=== PATIENT | female | born 1965 | race Hispanic/Latino ===

== ENCOUNTER 2021-08-10 16:30 | Inpatient (IN) | payer MEDICAID ==
[2021-08-11] MEDS ORDERED: traMADol 50 MG TAB PO PRN (09:00)
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
[2021-08-11] MEDS ORDERED: BUPRENORPHINE 2 MG/NALOXONE 0.5 MG FILM SL SCH (10:00)
[2021-08-11] MEDS ORDERED: NON-FORMULARY EACH (Metformin Hcl [Metformin] 1,000 MG Tablet) PO SCH (10:00)
[2021-08-11] MEDS: CLARITHROMYCIN 500 MG TAB PO SCH ×2 (10:16→22:03)
[2021-08-11] MEDS: DULoxetine 30 MG CAP PO SCH (11:10)
[2021-08-11] MEDS: PANTOPRAZOLE 20 MG TAB PO SCH (11:10)
[2021-08-11] MEDS: busPIRone 10 MG TAB PO SCH ×2 (11:10→22:03)
[2021-08-11] MEDS: LISINOPRIL 40 MG TAB PO SCH (11:11)
[2021-08-11] MEDS: AMOXICILLIN 500 MG CAP PO SCH ×2 (11:11→22:04)
[2021-08-11] MEDS: BUPRENORPHINE 2 MG/NALOXONE 0.5 MG FILM SL SCH ×2 (11:12→22:03)
[2021-08-11] MEDS: metFORMIN 500 MG TAB PO SCH ×2 (11:17→18:24)
[2021-08-11] MEDS: PROPRANOLOL 10 MG TAB PO SCH ×2 (15:27→20:29)
[2021-08-11 16:12] LABS: Basophils # (Auto) 0.1 K/mm3 (0.0-0.1); Basophils % (Auto) 0.8 % (0.0-1.8); Eosinophils % (Auto) 0.5 % (0.0-4.3); Hematocrit 48.5 % (30.3-42.9); Hemoglobin 15.9 gm/dl (10.1-14.3); Lymphocytes # (Auto) 2.6 K/mm3 (1.2-5.4); Lymphocytes % (Auto) 32.2 % (13.4-35.0); Mean Corpuscular HGB Conc 33 % (30-34); Mean Corpuscular Volume 90 fl (79-97); Monocytes # (Auto) 0.6 K/mm3 (0.0-0.8); Monocytes % (Auto) 7.1 % (0.0-7.3); Platelet Count 257 K/mm3 (140-440); Red Blood Count 5.38 M/mm3 (3.65-5.03); Red Cell Distribution Width 13.8 % (13.2-15.2)
[2021-08-11 16:28] LABS: Alanine Aminotransferase 8 units/L (7-56); Albumin 3.8 g/dL (3.9-5); BUN/Creatinine Ratio 11; Blood Urea Nitrogen 9 mg/dL (7-17); Calcium 9.8 mg/dL (8.4-10.2); Chol/HDL Ratio 4.55 %; HDL Cholesterol 43 mg/dL (40-59); Hemolysis Index 3; LDL Cholesterol,Direct 131 mg/dL (50-130)
[2021-08-11 17:09] LABS: Hepatitis B Surface Antigen Non-Reactive (Negative); Hepatitis C Virus Antibody Non-Reactive (NonReactive)
[2021-08-12] MEDS: metFORMIN 500 MG TAB PO SCH ×2 (08:33→17:05)
--- NOTE | 2021-08-12 09:02 | Progress Note ---
Subjective Date of service: 08/12/21 Subjective Comment: 08/12/21: The patient was seen at breakfast. She reports doing well. The patient is paranoid stating "people are out to get me and my family." She denies any current suicidal ideation but continues to endorse auditory hallucinations. REVIEW OF SYSTEMS Constitutional: Negative for weight loss ENT: Negative for stridor Respiratory: Negative for cough or hemoptysis All other systems reviewed and are negative MENTAL STATUS EXAMINATION General Appearance and Behavior: Age appropriate, good hygiene, wearing appropriate clothes, calm and cooperative polite with questioning. Cooperation: engaged Psychomotor Behavior: Psychomotor normal Mood:depressed Affect and affective range: congruent with stated mood Thought Process: Goal directed Thought Content: Reality oriented Speech: Normal Suicidal Ideation: Denies Homicidal Ideation: Denies Hallucinations: Auditory Delusions: None elicited Impulse Control: Normal Insight and Judgment: Limited Memory: Normal Attention: attentive Orientation: a/o x3 Diagnoses: Schizoaffective Treatment Plan Patient admitted for inpatient psychiatric evaluation, medication adjustment and close monitoring The patient's behavior, mood, sleep and appetite will be closely monitored. Patient enrolled in individual and group therapeutic sessions and encouraged to attend. Patient provided with a safe and structured environment. Patient's physical health needs will be addressed by the Hospitalist. Hospitalist Consulted Labs including CBC, CMP, Lipid profile and Hemoglobin A1C levels ordered for baseline reference Social Assessment will be completed and the Round [employer]er will work with patient and family to ensure a suitable and safe disposition Medication adjustment will be made as clinically indicated Start Home Meds Usual Wellness Mandaen/Preservation: - Start Trazodone 50 mg po QHS & 50 mg po QHS PRN between 10 PM & 2 AM for insomnia - Start Melatonin 5 mg po QHS to promote circadian rhythm The patient agreed on the treatment plan, understood the risk, benefit, alternative treatment, potential consequence of no treatment, and gave informed consent. Initial Certification I certify that the inpatient psychiatric services are required for treatment that could reasonably be expected to improve the patient's condition. Estimated days: 7 Post hospital care: primary care provider, psychiatric provider Case staffed with Dr. Savage Legal Status: Voluntary Reaction to Hospitalization: Accepting Medications and Allergies Medications and Allergies Allergies Allergy/AdvReac Type Severity Reaction Status Date / Time No Known Allergies Allergy Verified 08/11/21 03:31 Home Medications Medication Instructions Recorded Confirmed Last Taken Type Amoxicillin [Trimox CAP] 1,000 mg PO BID 08/10/21 08/10/21 Unknown History Clarithromycin 500 mg PO Q12HR 08/10/21 08/10/21 Unknown History DULoxetine [Cymbalta] 30 mg PO DAILY 08/10/21 08/10/21 Unknown History Metformin HCl [metFORMIN] 1,000 mg PO BID 08/10/21 08/10/21 Unknown History Paliperidone Palmitate [Invega 234 mg IM QMONTH 08/10/21 08/10/21 Unknown History Sustenna] Pantoprazole [Protonix TAB] 20 mg QDAY 08/10/21 08/10/21 Unknown History busPIRone [Buspar] 10 mg PO BID 08/10/21 08/10/21 Unknown History lisinopriL [Zestril TAB] 40 mg PO QDAY 08/10/21 08/10/21 Unknown History propranoloL [Inderal] 10 mg PO TID 08/10/21 08/10/21 Unknown History traMADoL [Ultram] 50 mg PO Q12HR PRN 08/10/21 08/10/21 Unknown History Active Meds: Active Medications Amoxicillin (Amoxicillin 500 Mg Cap) 1,000 mg PO BID [facility]; Protocol Stop: 08/24/21 22:01 Last Admin: 08/11/21 22:04 Dose: 1,000 mg Buprenorphine HCl (Buprenorphine 2 Mg/Naloxone 0.5 Mg Film) 2 each SL BID [facility] Last Admin: 08/11/21 22:03 Dose: 2 each Buspirone HCl (Buspirone 10 Mg Tab) 10 mg PO BID [facility] Last Admin: 08/11/21 22:03 Dose: 10 mg Clarithromycin (Clarithromycin 500 Mg Tab) 500 mg PO Q12HR [facility] Stop: 08/24/21 22:01 Last Admin: 08/11/21 22:03 Dose: 500 mg Duloxetine HCl (Duloxetine 30 Mg Cap) 30 mg PO DAILY [facility] Last Admin: 08/11/21 11:10 Dose: 30 mg Lisinopril (Lisinopril 40 Mg Tab) 40 mg PO QDAY [facility] Last Admin: 08/11/21 11:11 Dose: 40 mg Metformin HCl (Metformin 500 Mg Tab) 1,000 mg PO BIDDIAB [facility] Last Admin: 08/12/21 08:33 Dose: 1,000 mg Pantoprazole Sodium (Pantoprazole 20 Mg Tab) 20 mg PO QDAY [facility] Last Admin: 08/11/21 11:10 Dose: 20 mg Propranolol HCl (Propranolol 10 Mg Tab) 10 mg PO TID [facility] Last Admin: 08/11/21 20:29 Dose: 10 mg Tramadol HCl (Tramadol 50 Mg Tab) 50 mg PO Q12HR PRN PRN Reason: Pain , Severe (7-10) Results - Results Labs/Vitals: Laboratory Last Values WBC 8.2 K/mm3 (4.5-11.0) 08/11/21 15: RBC 5.38 M/mm3 (3.65-5.03) H 08/11/21 15:21 Hgb 15.9 gm/dl (10.1-14.3) H 08/11/21 15: Hct 48.5 % (30.3-42.9) H 08/11/21 15:21 MCV 90 fl (79-97) 08/11/21 15: MCH 30 pg (28-32) 08/11/21 15: MCHC 33 % (30-34) 08/11/21 15:21 RDW 13.8 % (13.2-15.2) 08/11/21 15:21 Plt Count 257 K/mm3 (140-440) 08/11/21 15:21 Lymph % (Auto) 32.2 % (13.4-35.0) 08/11/21 15:21 Crosby % (Auto) 7.1 % (0.0-7.3) 08/11/21 15: Eos % (Auto) 0.5 % (0.0-4.3) 08/11/21 15: Baso % (Auto) 0.8 % (0.0-1.8) 08/11/21 15: Lymph # (Auto) 2.6 K/mm3 (1.2-5.4) 08/11/21 15:21 Crosby # (Auto) 0.6 K/mm3 (0.0-0.8) 08/11/21 15:21 Eos # (Auto) 0.0 K/mm3 (0.0-0.4) 08/11/21 15:21 Baso # (Auto) 0.1 K/mm3 (0.0-0.1) 08/11/21 15:21 Seg Neutrophils % 59.4 % (40.0-70.0) 08/11/21 15:21 Seg Neutrophils # 4.9 K/mm3 (1.8-7.7) 08/11/21 15:21 Sodium 140 mmol/L (137-145) 08/11/21 15:21 Potassium 4.7 mmol/L (3.6-5.0) 08/11/21 15:21 Chloride 104.9 mmol/L (98-107) 08/11/21 15:21 Carbon Dioxide 23 mmol/L (22-30) 08/11/21 15:21 Anion Gap 17 mmol/L 08/11/21 15:21 BUN 9 mg/dL (7-17) 08/11/21 15:21 Creatinine 0.8 mg/dL (0.6-1.2) 08/11/21 15:21 Estimated GFR > 60 ml/min 08/11/21 15:21 BUN/Creatinine Ratio 11 % 08/11/21 15:21 Glucose 86 mg/dL (65-100) 08/11/21 15:21 POC Glucose 85 mg/dL (70-105) 08/12/21 06:33 Hemoglobin A1c 5.8 % (4-6) 08/11/21 15:21 Calcium 9.8 mg/dL (8.4-10.2) 08/11/21 15:21 Total Bilirubin 0.40 mg/dL (0.1-1.2) 08/11/21 15:21 AST 12 units/L (5-40) 08/11/21 15:21 ALT 8 units/L (7-56) 08/11/21 15:21 Alkaline Phosphatase 77 units/L (35-129) 08/11/21 15:21 Total Protein 6.4 g/dL (6.3-8.2) 08/11/21 15:21 Albumin 3.8 g/dL (3.9-5) L 08/11/21 15:21 Albumin/Globulin Ratio 1.5 % 08/11/21 15:21 Triglycerides 98 mg/dL (2-149) 08/11/21 15:21 Cholesterol 196 mg/dL (50-199) 08/11/21 15:21 LDL Cholesterol Direct 131 mg/dL (50-130) H 08/11/21 15:21 HDL Cholesterol 43 mg/dL (40-59) 08/11/21 15:21 Cholesterol/HDL Ratio 4.55 % 08/11/21 15:21 TSH 0.976 mlU/mL (0.270-4.200) 08/11/21 15:21 Hepatitis A IgM Ab Non-reactive (NonReactive) 08/11/21 15:21 Hep Bs Antigen Non-reactive (Negative) 08/11/21 15:21 Hep B Core IgM Ab Non-reactive (NonReactive) 08/11/21 15:21 Hepatitis C Antibody Non-reactive (NonReactive) 08/11/21 15:21 Last Vital Signs Temp 97.4 F L 08/11/21 19:26 Pulse 90 08/11/21 20:29 Resp 18 08/11/21 19:26 BP 123/92 08/11/21 20:29 Pulse Ox 95 08/11/21 19:26
[2021-08-12] MEDS: AMOXICILLIN 500 MG CAP PO SCH ×2 (09:35→21:03)
[2021-08-12] MEDS: PANTOPRAZOLE 20 MG TAB PO SCH (09:35)
[2021-08-12] MEDS: LISINOPRIL 40 MG TAB PO SCH (09:36)
[2021-08-12] MEDS: busPIRone 10 MG TAB PO SCH ×2 (09:36→21:03)
[2021-08-12] MEDS: DULoxetine 30 MG CAP PO SCH (09:36)
[2021-08-12] MEDS: PROPRANOLOL 10 MG TAB PO SCH ×3 (09:37→21:03)
[2021-08-12] MEDS: BUPRENORPHINE 2 MG/NALOXONE 0.5 MG FILM SL SCH ×2 (09:38→21:04)
[2021-08-12] MEDS: CLARITHROMYCIN 500 MG TAB PO SCH ×2 (09:38→21:03)
--- NOTE | 2021-08-12 09:45 | Consultation ---
History of Present Illness - Reason for Consult Consult date: 08/05/21 Mental health admission, hypertension, diabetes Requesting physician: OLGA HOLDEN - History of Present Illness 56-year-old female with a history of hypertension, diabetes schizoaffective dis order presents to the emergency room with a chief complaint of auditory hallucinations and depression. Has been going on for several weeks. Culminating in patient decided to come to the ED. Patient has a history of hypertension and diabetes states has been compliant with medications. Patient denies any shortness of breath and dyspnea on exertion. Denies any chest pain. Past History Past Medical History: diabetes, hypertension Past Surgical History: No surgical history Social history: other (Lives with significant other) Family history: diabetes Medications and Allergies Allergies Allergy/AdvReac Type Severity Reaction Status Date / Time No Known Allergies Allergy Verified 08/11/21 03:31 Home Medications Medication Instructions Recorded Confirmed Last Taken Type Amoxicillin [Trimox CAP] 1,000 mg PO BID 08/10/21 08/10/21 Unknown History Clarithromycin 500 mg PO Q12HR 08/10/21 08/10/21 Unknown History DULoxetine [Cymbalta] 30 mg PO DAILY 08/10/21 08/10/21 Unknown History Metformin HCl [metFORMIN] 1,000 mg PO BID 08/10/21 08/10/21 Unknown History Paliperidone Palmitate [Invega 234 mg IM QMONTH 08/10/21 08/10/21 Unknown History Sustenna] Pantoprazole [Protonix TAB] 20 mg QDAY 08/10/21 08/10/21 Unknown History busPIRone [Buspar] 10 mg PO BID 08/10/21 08/10/21 Unknown History lisinopriL [Zestril TAB] 40 mg PO QDAY 08/10/21 08/10/21 Unknown History propranoloL [Inderal] 10 mg PO TID 08/10/21 08/10/21 Unknown History traMADoL [Ultram] 50 mg PO Q12HR PRN 08/10/21 08/10/21 Unknown History Active Meds: Active Medications Amoxicillin (Amoxicillin 500 Mg Cap) 1,000 mg PO BID [facility]; Protocol Stop: 08/24/21 22:01 Last Admin: 08/12/21 09:35 Dose: 1,000 mg Buprenorphine HCl (Buprenorphine 2 Mg/Naloxone 0.5 Mg Film) 2 each SL BID [facility] Last Admin: 08/12/21 09:38 Dose: 2 each Buspirone HCl (Buspirone 10 Mg Tab) 10 mg PO BID [facility] Last Admin: 08/12/21 09:36 Dose: 10 mg Clarithromycin (Clarithromycin 500 Mg Tab) 500 mg PO Q12HR [facility] Stop: 08/24/21 22:01 Last Admin: 08/12/21 09:38 Dose: 500 mg Duloxetine HCl (Duloxetine 30 Mg Cap) 30 mg PO DAILY [facility] Last Admin: 08/12/21 09:36 Dose: 30 mg Lisinopril (Lisinopril 40 Mg Tab) 40 mg PO QDAY [facility] Last Admin: 08/12/21 09:36 Dose: 40 mg Metformin HCl (Metformin 500 Mg Tab) 1,000 mg PO BIDDIAB [facility] Last Admin: 08/12/21 08:33 Dose: 1,000 mg Pantoprazole Sodium (Pantoprazole 20 Mg Tab) 20 mg PO QDAY [facility] Last Admin: 08/12/21 09:35 Dose: 20 mg Propranolol HCl (Propranolol 10 Mg Tab) 10 mg PO TID [facility] Last Admin: 08/12/21 09:37 Dose: 10 mg Tramadol HCl (Tramadol 50 Mg Tab) 50 mg PO Q12HR PRN PRN Reason: Pain , Severe (7-10) Review of Systems Constitutional: malaise, chronic pain, no weight loss, no weight gain, no fever, no chills, no sweats, no anorexia, no fatigue, no weakness, no poor appetite Ears, nose, mouth and throat: no ear pain, no tinnitis, no nose pain, no nasal congestion, no dental pain, no mouth pain, no hoarseness, no sore throat, no voice changes, no headache, no pain front of neck Cardiovascular: no palpitations, no rapid/irregular heart beat, no paroxysmal nocturnal dyspnea, no claudication, no high blood pressure, no decreased exercise tolerance Respiratory: no cough with sputum, no excessive sputum, no hemoptysis, no pleurisy, no pain on inspiration, no sleep apnea, no respiratory infections Gastrointestinal: no vomiting, no constipation, no hematemesis, no heartburn, no belching, no jaundice, no other Musculoskeletal: low back pain, no shooting arm pain, no arm numbness/tingling, no shooting leg pain, no leg numbness/tingling, no morning stiffness, no muscle weakness, no myalgias, no frequent falls, no loss of height Neurological: no paralysis, no weakness, no numbness, no seizures, no headaches, no migraines, no change in mentation, no sensory deficit, no loss of vision Psychiatric: anxiety, change in sleep habits, hallucinations, depression, anxiety attacks, no suicidal ideation, no hopelessness Endocrine: no cold intolerance, no polyphagia, no nocturia, no increase in ring/shoe/hat size, no high blood sugars, no low blood sugars Exam - Constitutional Vitals: Temp Pulse Resp BP Pulse Ox 97.4 F L 82 18 144/63 95 08/11/21 19:26 08/12/21 09:37 08/11/21 19:26 08/12/21 09:37 08/11/21 19:26 General appearance: Present: no acute distress, well-nourished - EENT Eyes: Present: PERRL ENT: hearing intact, clear oral mucosa - Neck Neck: Present: supple, normal ROM - Respiratory Respiratory effort: normal Respiratory: bilateral: CTA - Cardiovascular Heart Sounds: Present: S1 & S2. Absent: rub, click - Extremities Extremities: pulses symmetrical, No edema Peripheral Pulses: within normal limits - Abdominal General gastrointestinal: Present: soft, non-tender, non-distended, normal bowel sounds Female genitourinary: Present: normal - Integumentary Integumentary: Present: clear, warm, dry - Musculoskeletal Musculoskeletal: gait normal, strength equal bilaterally - Psychiatric Psychiatric: appropriate mood/affect, intact judgment & insight - Neurologic Neurologic: CNII-XII intact, moves all extremities Results - Labs CBC & Chem 7: 08/11/21 15:21 08/11/21 15:21 Labs: Abnormal lab results 08/11/21 08/11/21 08/11/21 Range/Units 11:22 15:21 15:21 RBC 5.38 H (3.65-5.03) M/mm3 Hgb 15.9 H (10.1-14.3) gm/dl Hct 48.5 H (30.3-42.9) % POC Glucose 114 H (70-105) mg/dL Albumin 3.8 L (3.9-5) g/dL LDL Cholesterol Direct 131 H (50-130) mg/dL 08/11/21 Range/Units 19:22 RBC (3.65-5.03) M/mm3 Hgb (10.1-14.3) gm/dl Hct (30.3-42.9) % POC Glucose 110 H (70-105) mg/dL Albumin (3.9-5) g/dL LDL Cholesterol Direct (50-130) mg/dL Assessment and Plan - Patient Problems (1) Hypertension Current Visit: Yes Status: Acute Plan to address problem: Patient hypertension has fair but suboptimal control. Patient's blood pressure currently 122/93. Will not be more aggressive at this time with treatment of blood pressure. Continue lisinopril and Inderal. Patient has no chest pain no shortness of breath. No dyspnea on exertion. Well-controlled continue present medical management. (2) Diabetes Current Visit: Yes Status: Acute Plan to address problem: Currently on Metformin 1000 mg twice daily. Patient appears to be eating reg ularly. No evidence of hypoglycemia. Accu-Cheks very well controlled currently 84 TO 140. Continue present management with oral hypoglycemic. Accu-Cheks twice daily. Unlikely will need any sliding scale insulin. (3) Schizoaffective disorder Current Visit: Yes Status: Acute Plan to address problem: Continue present medical management per psychiatry.
--- NOTE | 2021-08-13 09:12 | Progress Note ---
Subjective Date of service: 08/13/21 Subjective Comment: 08/13/21: The patient was seen resting in bed. She states she is doing alright. She reports depression as 5/10 and anxiety as 3/10. She reports sleep and appetite as good. No expression of paranoia. She denies any current suicidal ideation and denies hallucinations. 08/12/21: The patient was seen at breakfast. She reports doing well. The patient is paranoid stating "people are out to get me and my family." She denies any current suicidal ideation but continues to endorse auditory hallucinations. REVIEW OF SYSTEMS Constitutional: Negative for weight loss ENT: Negative for stridor Respiratory: Negative for cough or hemoptysis All other systems reviewed and are negative MENTAL STATUS EXAMINATION General Appearance and Behavior: Age appropriate, good hygiene, wearing appropriate clothes, calm and cooperative polite with questioning. Cooperation: engaged Psychomotor Behavior: Psychomotor normal Mood:depressed Affect and affective range: congruent with stated mood Thought Process: Goal directed Thought Content: Reality oriented Speech: Normal Suicidal Ideation: Denies Homicidal Ideation: Denies Hallucinations: Denies Delusions: None elicited Impulse Control: Normal Insight and Judgment: Limited Memory: Normal Attention: attentive Orientation: a/o x3 Diagnoses: Schizoaffective Treatment Plan Patient admitted for inpatient psychiatric evaluation, medication adjustment and close monitoring The patient's behavior, mood, sleep and appetite will be closely monitored. Patient enrolled in individual and group therapeutic sessions and encouraged to attend. Patient provided with a safe and structured environment. Patient's physical health needs will be addressed by the Hospitalist. Hospitalist Consulted Labs including CBC, CMP, Lipid profile and Hemoglobin A1C levels ordered for baseline reference Social Assessment will be completed and the Warp Knitter will work with patient and family to ensure a suitable and safe disposition Medication adjustment will be made as clinically indicated Start Home Meds Usual Wellness Zoroastrian/Preservation: - Start Trazodone 50 mg po QHS & 50 mg po QHS PRN between 10 PM & 2 AM for insomnia - Start Melatonin 5 mg po QHS to promote circadian rhythm The patient agreed on the treatment plan, understood the risk, benefit, alterna tive treatment, potential consequence of no treatment, and gave informed consent. Initial Certification I certify that the inpatient psychiatric services are required for treatment that could reasonably be expected to improve the patient's condition. Estimated days: 7 Post hospital care: primary care provider, psychiatric provider Case staffed with Dr. Savage Legal Status: Voluntary Reaction to Hospitalization: Accepting Medications and Allergies Medications and Allergies Allergies Allergy/AdvReac Type Severity Reaction Status Date / Time No Known Allergies Allergy Verified 08/11/21 03:31 Home Medications Medication Instructions Recorded Confirmed Last Taken Type Amoxicillin [Trimox CAP] 1,000 mg PO BID 08/10/21 08/10/21 Unknown History Clarithromycin 500 mg PO Q12HR 08/10/21 08/10/21 Unknown History DULoxetine [Cymbalta] 30 mg PO DAILY 08/10/21 08/10/21 Unknown History Metformin HCl [metFORMIN] 1,000 mg PO BID 08/10/21 08/10/21 Unknown History Paliperidone Palmitate [Invega 234 mg IM QMONTH 08/10/21 08/10/21 Unknown History Sustenna] Pantoprazole [Protonix TAB] 20 mg QDAY 08/10/21 08/10/21 Unknown History busPIRone [Buspar] 10 mg PO BID 08/10/21 08/10/21 Unknown History lisinopriL [Zestril TAB] 40 mg PO QDAY 08/10/21 08/10/21 Unknown History propranoloL [Inderal] 10 mg PO TID 08/10/21 08/10/21 Unknown History traMADoL [Ultram] 50 mg PO Q12HR PRN 08/10/21 08/10/21 Unknown History Active Meds: Active Medications Amoxicillin (Amoxicillin 500 Mg Cap) 1,000 mg PO BID [facility]; Protocol Stop: 08/24/21 22:01 Last Admin: 08/12/21 21:03 Dose: 1,000 mg Buprenorphine HCl (Buprenorphine 2 Mg/Naloxone 0.5 Mg Film) 2 each SL BID [facility] Last Admin: 08/12/21 21:04 Dose: 2 each Buspirone HCl (Buspirone 10 Mg Tab) 10 mg PO BID [facility] Last Admin: 08/12/21 21:03 Dose: 10 mg Clarithromycin (Clarithromycin 500 Mg Tab) 500 mg PO Q12HR [facility] Stop: 08/24/21 22:01 Last Admin: 08/12/21 21:03 Dose: 500 mg Duloxetine HCl (Duloxetine 30 Mg Cap) 30 mg PO DAILY [facility] Last Admin: 08/12/21 09:36 Dose: 30 mg Lisinopril (Lisinopril 40 Mg Tab) 40 mg PO QDAY [facility] Last Admin: 08/12/21 09:36 Dose: 40 mg Metformin HCl (Metformin 500 Mg Tab) 1,000 mg PO BIDDIAB [facility] Last Admin: 08/12/21 17:05 Dose: 1,000 mg Pantoprazole Sodium (Pantoprazole 20 Mg Tab) 20 mg PO QDAY [facility] Last Admin: 08/12/21 09:35 Dose: 20 mg Propranolol HCl (Propranolol 10 Mg Tab) 10 mg PO TID [facility] Last Admin: 08/12/21 21:03 Dose: 10 mg Tramadol HCl (Tramadol 50 Mg Tab) 50 mg PO Q12HR PRN PRN Reason: Pain , Severe (7-10) Results - Results Labs/Vitals: Laboratory Last Values WBC 8.2 K/mm3 (4.5-11.0) 08/11/21 15:21 RBC 5.38 M/mm3 (3.65-5.03) H 08/11/21 15:21 Hgb 15.9 gm/dl (10.1-14.3) H 08/11/21 15:21 Hct 48.5 % (30.3-42.9) H 08/11/21 15:21 MCV 90 fl (79-97) 08/11/21 15:21 MCH 30 pg (28-32) 08/11/21 15:21 MCHC 33 % (30-34) 08/11/21 15:21 RDW 13.8 % (13.2-15.2) 08/11/21 15:21 Plt Count 257 K/mm3 (140-440) 08/11/21 15:21 Lymph % (Auto) 32.2 % (13.4-35.0) 08/11/21 15:21 [place] % (Auto) 7.1 % (0.0-7.3) 08/11/21 15:21 Eos % (Auto) 0.5 % (0.0-4.3) 08/11/21 15: Baso % (Auto) 0.8 % (0.0-1.8) 08/11/21 15:21 Lymph # (Auto) 2.6 K/mm3 (1.2-5.4) 08/11/21 15:21 [place] # (Auto) 0.6 K/mm3 (0.0-0.8) 08/11/21 15:21 Eos # (Auto) 0.0 K/mm3 (0.0-0.4) 08/11/21 15:21 Baso # (Auto) 0.1 K/mm3 (0.0-0.1) 08/11/21 15:21 Seg Neutrophils % 59.4 % (40.0-70.0) 08/11/21 15:21 Seg Neutrophils # 4.9 K/mm3 (1.8-7.7) 08/11/21 15:21 Sodium 140 mmol/L (137-145) 08/11/21 15:21 Potassium 4.7 mmol/L (3.6-5.0) 08/11/21 15:21 Chloride 104.9 mmol/L (98-107) 08/11/21 15:21 Carbon Dioxide 23 mmol/L (22-30) 08/11/21 15:21 Anion Gap 17 mmol/L 08/11/21 15:21 BUN 9 mg/dL (7-17) 08/11/21 15:21 Creatinine 0.8 mg/dL (0.6-1.2) 08/11/21 15:21 Estimated GFR > 60 ml/min 08/11/21 15:21 BUN/Creatinine Ratio 11 % 08/11/21 15:21 Glucose 86 mg/dL (65-100) 08/11/21 15:21 POC Glucose 89 mg/dL (70-105) 08/12/21 16:37 Hemoglobin A1c 5.8 % (4-6) 08/11/21 15:21 Calcium 9.8 mg/dL (8.4-10.2) 08/11/21 15:21 Total Bilirubin 0.40 mg/dL (0.1-1.2) 08/11/21 15:21 AST 12 units/L (5-40) 08/11/21 15:21 ALT 8 units/L (7-56) 08/11/21 15:21 Alkaline Phosphatase 77 units/L (35-129) 08/11/21 15:21 Total Protein 6.4 g/dL (6.3-8.2) 08/11/21 15:21 Albumin 3.8 g/dL (3.9-5) L 08/11/21 15:21 Albumin/Globulin Ratio 1.5 % 08/11/21 15:21 Triglycerides 98 mg/dL (2-149) 08/11/21 15:21 Cholesterol 196 mg/dL (50-199) 08/11/21 15:21 LDL Cholesterol Direct 131 mg/dL (50-130) H 08/11/21 15:21 HDL Cholesterol 43 mg/dL (40-59) 08/11/21 15:21 Cholesterol/HDL Ratio 4.55 % 08/11/21 15:21 TSH 0.976 mlU/mL (0.270-4.200) 08/11/21 15:21 Hepatitis A IgM Ab Non-reactive (NonReactive) 08/11/21 15:21 Hep Bs Antigen Non-reactive (Negative) 08/11/21 15:21 Hep B Core IgM Ab Non-reactive (NonReactive) 08/11/21 15:21 Hepatitis C Antibody Non-reactive (NonReactive) 08/11/21 15:21 Last Vital Signs Temp 98.1 F 08/12/21 20:03 Pulse 68 08/12/21 21:03 Resp 17 08/12/21 20:03 BP 119/75 08/12/21 21:03 Pulse Ox 96 08/12/21 20:03
[2021-08-13] MEDS: BUPRENORPHINE 2 MG/NALOXONE 0.5 MG FILM SL SCH ×2 (10:25→21:07)
[2021-08-13] MEDS: busPIRone 10 MG TAB PO SCH ×2 (10:26→21:07)
[2021-08-13] MEDS: metFORMIN 500 MG TAB PO SCH ×2 (10:26→17:44)
[2021-08-13] MEDS: CLARITHROMYCIN 500 MG TAB PO SCH ×2 (10:27→21:07)
[2021-08-13] MEDS: DULoxetine 30 MG CAP PO SCH (10:27)
[2021-08-13] MEDS: LISINOPRIL 40 MG TAB PO SCH (10:27)
[2021-08-13] MEDS: PANTOPRAZOLE 20 MG TAB PO SCH (10:27)
[2021-08-13] MEDS: PROPRANOLOL 10 MG TAB PO SCH ×3 (10:27→21:07)
[2021-08-13] MEDS: AMOXICILLIN 500 MG CAP PO SCH ×2 (10:27→21:07)
[2021-08-14] MEDS: PROPRANOLOL 10 MG TAB PO SCH ×3 (08:41→21:24)
[2021-08-14] MEDS: metFORMIN 500 MG TAB PO SCH ×2 (08:42→17:18)
[2021-08-14] MEDS: DULoxetine 30 MG CAP PO SCH (09:19)
[2021-08-14] MEDS: CLARITHROMYCIN 500 MG TAB PO SCH ×2 (09:19→21:24)
[2021-08-14] MEDS: AMOXICILLIN 500 MG CAP PO SCH ×2 (09:19→21:25)
[2021-08-14] MEDS: busPIRone 10 MG TAB PO SCH ×2 (09:20→21:25)
[2021-08-14] MEDS: PANTOPRAZOLE 20 MG TAB PO SCH (09:20)
[2021-08-14] MEDS: LISINOPRIL 40 MG TAB PO SCH (09:20)
--- NOTE | 2021-08-14 10:15 | Discharge Summary ---
Providers - Providers Date of Admission: 08/10/21 23:31 Date of discharge: 08/14/21 Attending physician: EBNEEZER HARPER MD 08/10/21 22:59 Consult to Physician [CONS] Routine Comment: Consulting Provider: FRANK BAEZ Physician Instructions: Reason For Exam: New psych admission Primary care physician: BRIQUETTE MACHINE OPERATOR HELPER Hospitalization Reason for admission: depression Admitting Diagnosis: F20.9 - SCHIZOPHRENIA, UNSPECIFIED Condition: Stable Hospital course: The patient was provided inpatient psychiatric treatment with safe and supportive environment, group/individual therapy, psychiatric medication, medication adjustment, adverse effect monitor, medical evaluation, medical surekha tment, social service assessment, social support meeting, placement assessment and psycho-education. The patients mood, cognition, behavior, motivation, compliance to treatment and appreciation on family/social support are improved and stabilized. At the time of discharge, the patient had no suicidal ideas, no homicidal ideas, no aggressive thoughts, no endangering behavior and no debilitating adverse effects. The patient agreed on the treatment plan, understood the risk, benefit, alternative treatment, potential consequence of no treatment, and gave informed consent. Disposition: 01 HOME / SELF CARE / HOMELESS Time spent for discharge: 35 Allergies/Adverse Reactions: Allergies No Known Allergies Allergy (Verified 08/11/21 03:31) Vital Signs: Last Vital Signs Temp 98.5 F 08/14/21 08:38 Pulse 86 08/14/21 08:41 Resp 16 08/14/21 08:38 BP 92/55 08/14/21 08:41 Pulse Ox 93 08/14/21 08:38 Last Lab: Laboratory Last Values WBC 8.2 K/mm3 (4.5-11.0) 08/11/21 15:21 RBC 5.38 M/mm3 (3.65-5.03) H 08/11/21 15:21 Hgb 15.9 gm/dl (10.1-14.3) H 08/11/21 15:21 Hct 48.5 % (30.3-42.9) H 08/11/21 15:21 MCV 90 fl (79-97) 08/11/21 15:21 MCH 30 pg (28-32) 08/11/21 15:21 MCHC 33 % (30-34) 08/11/21 15:21 RDW 13.8 % (13.2-15.2) 08/11/21 15:21 Plt Count 257 K/mm3 (140-440) 08/11/21 15:21 Lymph % (Auto) 32.2 % (13.4-35.0) 08/11/21 15:21 [place] % (Auto) 7.1 % (0.0-7.3) 08/11/21 15:21 Eos % (Auto) 0.5 % (0.0-4.3) 08/11/21 15:21 Baso % (Auto) 0.8 % (0.0-1.8) 08/11/21 15:21 Lymph # (Auto) 2.6 K/mm3 (1.2-5.4) 08/11/21 15:21 [place] # (Auto) 0.6 K/mm3 (0.0-0.8) 08/11/21 15:21 Eos # (Auto) 0.0 K/mm3 (0.0-0.4) 08/11/21 15:21 Baso # (Auto) 0.1 K/mm3 (0.0-0.1) 08/11/21 15:21 Seg Neutrophils % 59.4 % (40.0-70.0) 08/11/21 15:21 Seg Neutrophils # 4.9 K/mm3 (1.8-7.7) 08/11/21 15:21 Sodium 140 mmol/L (137-145) 08/11/21 15:21 Potassium 4.7 mmol/L (3.6-5.0) 08/11/21 15:21 Chloride 104.9 mmol/L (98-107) 08/11/21 15:21 Carbon Dioxide 23 mmol/L (22-30) 08/11/21 15:21 Anion Gap 17 mmol/L 08/11/21 15:21 BUN 9 mg/dL (7-17) 08/11/21 15:21 Creatinine 0.8 mg/dL (0.6-1.2) 08/11/21 15:21 Estimated GFR > 60 ml/min 08/11/21 15:21 BUN/Creatinine Ratio 11 % 08/11/21 15:21 Glucose 86 mg/dL (65-100) 08/11/21 15:21 POC Glucose 95 mg/dL (70-105) 08/14/21 06:36 Hemoglobin A1c 5.8 % (4-6) 08/11/21 15:21 Calcium 9.8 mg/dL (8.4-10.2) 08/11/21 15:21 Total Bilirubin 0.40 mg/dL (0.1-1.2) 08/11/21 15:21 AST 12 units/L (5-40) 08/11/21 15:21 ALT 8 units/L (7-56) 08/11/21 15:21 Alkaline Phosphatase 77 units/L (35-129) 08/11/21 15:21 Total Protein 6.4 g/dL (6.3-8.2) 08/11/21 15:21 Albumin 3.8 g/dL (3.9-5) L 08/11/21 15:21 Albumin/Globulin Ratio 1.5 % 08/11/21 15:21 Triglycerides 98 mg/dL (2-149) 08/11/21 15:21 Cholesterol 196 mg/dL (50-199) 08/11/21 15:21 LDL Cholesterol Direct 131 mg/dL (50-130) H 08/11/21 15:21 HDL Cholesterol 43 mg/dL (40-59) 08/11/21 15:21 Cholesterol/HDL Ratio 4.55 % 08/11/21 15:21 TSH 0.976 mlU/mL (0.270-4.200) 08/11/21 15:21 Hepatitis A IgM Ab Non-reactive (NonReactive) 08/11/21 15:21 Hep Bs Antigen Non-reactive (Negative) 08/11/21 15:21 Hep B Core IgM Ab Non-reactive (NonReactive) 08/11/21 15:21 Hepatitis C Antibody Non-reactive (NonReactive) 08/11/21 15:21 Core Measure Documentation - Palliative Care Palliative Care/ Comfort Measures: Not Applicable - Core Measures Any of the following diagnoses?: none Exam - Constitutional Vitals: Temp Pulse Resp BP Pulse Ox 98.5 F 86 16 92/55 93 08/14/21 08:38 08/14/21 08:41 08/14/21 08:38 08/14/21 08:41 08/14/21 08:38 General appearance: Present: no acute distress - EENT Eyes: Present: PERRL, EOM intact ENT: hearing intact, clear oral mucosa - Neck Neck: Present: supple, normal ROM - Respiratory Respiratory effort: normal Plan Activity: advance as tolerated Weight Bearing Status: Weight Bear as Tolerated Care Plan Goals: Maintain good and stable mental health Plan of Treatment: The patient should be compliant with medications, not to use drugs and not to drink alcohol.The patient understands that if suicidal ideas, homicidal ideas, or any endangering thoughts/behavior arise, they should immediately seek for emergent assistance including but not limited to crisis hot line and emergency room. Follow up with outpatient Psychiatrist and PCP within 7 - 14 days of discharge. Assessment: Schizophrenia Follow up with: PRIMARY CARE, [Primary Care Provider] - 7 Days Prescriptions: busPIRone [Buspar] 10 mg PO BID #60 DULoxetine [Cymbalta] 30 mg PO DAILY #30 cap
[2021-08-14] MEDS: BUPRENORPHINE 2 MG/NALOXONE 0.5 MG FILM SL SCH ×2 (10:20→21:25)
[2021-08-14 21:09] VITALS: BP 90/65
--- NOTE | 2021-08-15 08:48 | Discharge Summary ---
Providers - Providers Date of Admission: 08/10/21 23:31 Date of discharge: 08/15/21 Attending physician: EBENEZER HARPER MD 08/10/21 22:59 Consult to Physician [CONS] Routine Comment: Consulting Provider: FRANK BAEZ Physician Instructions: Reason For Exam: New psych admission Primary care physician: RAW SILK GRADER Hospitalization Reason for admission: depression Admitting Diagnosis: F25.9 - SCHIZOAFFECTIVE DISORDER, UNSPECIFIED Condition: Stable Hospital course: The patient was provided inpatient psychiatric treatment with safe and supportive environment, group/individual therapy, psychiatric medication, medication adjustment, adverse effect monitor, medical evaluation, medical treatment, social service assessment, social support meeting, placement assessment and psycho-education. The patients mood, cognition, behavior, motivation, compliance to treatment and appreciation on family/social support are improved and stabilized. At the time of discharge, the patient had no suicidal ideas, no homicidal ideas, no aggressive thoughts, no endangering behavior and no debilitating adverse effects. The patient agreed on the treatment plan, understood the risk, benefit, alternative treatment, potential consequence of no treatment, and gave informed consent. Disposition: 01 HOME / SELF CARE / HOMELESS Time spent for discharge: 35 Allergies/Adverse Reactions: Allergies No Known Allergies Allergy (Verified 08/11/21 03:31) Vital Signs: Last Vital Signs Temp 98.6 F 08/14/21 20:13 Pulse 79 08/14/21 20:13 Resp 16 08/14/21 20:13 BP 90/65 08/14/21 20:13 Pulse Ox 95 08/14/21 20:13 Last Lab: Laboratory Last Values WBC 8.2 K/mm3 (4.5-11.0) 08/11/21 15:21 RBC 5.38 M/mm3 (3.65-5.03) H 08/11/21 15:21 Hgb 15.9 gm/dl (10.1-14.3) H 08/11/21 15:21 Hct 48.5 % (30.3-42.9) H 08/11/21 15:21 MCV 90 fl (79-97) 08/11/21 15:21 MCH 30 pg (28-32) 08/11/21 15:21 MCHC 33 % (30-34) 08/11/21 15:21 RDW 13.8 % (13.2-15.2) 08/11/21 15:21 Plt Count 257 K/mm3 (140-440) 08/11/21 15:21 Lymph % (Auto) 32.2 % (13.4-35.0) 08/11/21 15:21 [place] % (Auto) 7.1 % (0.0-7.3) 08/11/21 15:21 Eos % (Auto) 0.5 % (0.0-4.3) 08/11/21 15:21 Baso % (Auto) 0.8 % (0.0-1.8) 08/11/21 15:21 Lymph # (Auto) 2.6 K/mm3 (1.2-5.4) 08/11/21 15:21 [place] # (Auto) 0.6 K/mm3 (0.0-0.8) 08/11/21 15:21 Eos # (Auto) 0.0 K/mm3 (0.0-0.4) 08/11/21 15:21 Baso # (Auto) 0.1 K/mm3 (0.0-0.1) 08/11/21 15:21 Seg Neutrophils % 59.4 % (40.0-70.0) 08/11/21 15:21 Seg Neutrophils # 4.9 K/mm3 (1.8-7.7) 08/11/21 15:21 Sodium 140 mmol/L (137-145) 08/11/21 15:21 Potassium 4.7 mmol/L (3.6-5.0) 08/11/21 15:21 Chloride 104.9 mmol/L (98-107) 08/11/21 15:21 Carbon Dioxide 23 mmol/L (22-30) 08/11/21 15:21 Anion Gap 17 mmol/L 08/11/21 15:21 BUN 9 mg/dL (7-17) 08/11/21 15:21 Creatinine 0.8 mg/dL (0.6-1.2) 08/11/21 15:21 Estimated GFR > 60 ml/min 08/11/21 15:21 BUN/Creatinine Ratio 11 % 08/11/21 15:21 Glucose 86 mg/dL (65-100) 08/11/21 15:21 POC Glucose 88 mg/dL (70-105) 08/15/21 06:28 Hemoglobin A1c 5.8 % (4-6) 08/11/21 15:21 Calcium 9.8 mg/dL (8.4-10.2) 08/11/21 15:21 Total Bilirubin 0.40 mg/dL (0.1-1.2) 08/11/21 15:21 AST 12 units/L (5-40) 08/11/21 15:21 ALT 8 units/L (7-56) 08/11/21 15:21 Alkaline Phosphatase 77 units/L (35-129) 08/11/21 15:21 Total Protein 6.4 g/dL (6.3-8.2) 08/11/21 15:21 Albumin 3.8 g/dL (3.9-5) L 08/11/21 15:21 Albumin/Globulin Ratio 1.5 % 08/11/21 15:21 Triglycerides 98 mg/dL (2-149) 08/11/21 15:21 Cholesterol 196 mg/dL (50-199) 08/11/21 15:21 LDL Cholesterol Direct 131 mg/dL (50-130) H 08/11/21 15:21 HDL Cholesterol 43 mg/dL (40-59) 08/11/21 15:21 Cholesterol/HDL Ratio 4.55 % 08/11/21 15:21 TSH 0.976 mlU/mL (0.270-4.200) 08/11/21 15:21 Hepatitis A IgM Ab Non-reactive (NonReactive) 08/11/21 15:21 Hep Bs Antigen Non-reactive (Negative) 08/11/21 15:21 Hep B Core IgM Ab Non-reactive (NonReactive) 08/11/21 15:21 Hepatitis C Antibody Non-reactive (NonReactive) 08/11/21 15:21 Core Measure Documentation - Palliative Care Palliative Care/ Comfort Measures: Not Applicable - Core Measures Any of the following diagnoses?: none Exam - Constitutional Vitals: Temp Pulse Resp BP Pulse Ox 98.6 F 79 16 90/65 95 08/14/21 20:13 08/14/21 20:13 08/14/21 20:13 08/14/21 20:13 08/14/21 20:13 General appearance: Present: no acute distress - EENT Eyes: Present: PERRL, EOM intact ENT: hearing intact, clear oral mucosa - Neck Neck: Present: supple, normal ROM - Respiratory Respiratory effort: normal Plan Activity: advance as tolerated Weight Bearing Status: Weight Bear as Tolerated Care Plan Goals: Maintain good and stable mental health Plan of Treatment: The patient should be compliant with medications, not to use drugs and not to drink alcohol.The patient understands that if suicidal ideas, homicidal ideas, or any endangering thoughts/behavior arise, they should immediately seek for emergent assistance including but not limited to crisis hot line and emergency room. Follow up with outpatient Psychiatrist and PCP within 7 - 14 days of discharge. Assessment: Schizophrenia Follow up with: PRIMARY CARE, [Primary Care Provider] - 7 Days Prescriptions: busPIRone [Buspar] 10 mg PO BID #60 DULoxetine [Cymbalta] 30 mg PO DAILY #30 cap
[2021-08-15] MEDS: metFORMIN 500 MG TAB PO SCH (09:31)
[2021-08-15] MEDS: CLARITHROMYCIN 500 MG TAB PO SCH (09:31)
[2021-08-15] MEDS: DULoxetine 30 MG CAP PO SCH (09:31)
[2021-08-15] MEDS: AMOXICILLIN 500 MG CAP PO SCH (09:31)
[2021-08-15] MEDS: LISINOPRIL 40 MG TAB PO SCH (09:31)
[2021-08-15] MEDS: busPIRone 10 MG TAB PO SCH (09:32)
[2021-08-15] MEDS: PROPRANOLOL 10 MG TAB PO SCH (09:32)
[2021-08-15] MEDS: BUPRENORPHINE 2 MG/NALOXONE 0.5 MG FILM SL SCH (09:32)
[2021-08-15] MEDS: PANTOPRAZOLE 20 MG TAB PO SCH (09:33)
== END 2021-08-15 12:28 | disposition home or self-care (01) | DRG 885 ==
LOC: UNDOADMIN 16:30 → 3A 16:30 → 5A 23:31
PROVIDERS: ADMIT Psychiatry & Neurology Psychiatry; ATTEND Psychiatry & Neurology Psychiatry
DX: F25.9 Schizoaffective disorder, unspecified (principal); I10 Essential (primary) hypertension; E11.9 Type 2 diabetes mellitus without complications; F32.9 Major depressive disorder, single episode, unspecified; Z79.899 Other long term (current) drug therapy; Z83.3 Family history of diabetes mellitus
CPT/HCPCS: 36415; 80053; 80061; 80074; 82962; 83036; 84443; 85025; G0378